=== PATIENT | male | born 1960 | race Caucasian/White ===

== ENCOUNTER 2020-07-08 06:34 | Outpatient (REF) | payer BC, SELFPAY ==
[2020-07-08 08:37] LABS: Cholesterol 217 mg/dL; Glucose Fasting 137 mg/dL (60-99); HDL Cholesterol 35 mg/dL; LDL Cholesterol Calculated 144 mg/dl; Triglycerides 191 mg/dL
[2020-07-08 09:24] LABS: Estimated Average Glucose 143 mg/dL; Hemoglobin A1c % 6.6 %
== END 2020-07-08 06:35 | disposition home or self-care (01) ==
LOC: HO.LAB 06:34
PROVIDERS: PCP Internal Medicine; Visit Provider Internal Medicine
DX: E11.9 Type 2 diabetes mellitus without complications (principal)
CPT/HCPCS: 36415; 80061; 82947; 83036

== ENCOUNTER 2021-01-13 07:12 | Outpatient (REF) | payer BC, SELFPAY ==
[2021-01-13 08:19] LABS: Estimated Average Glucose 148 mg/dL; Hemoglobin A1c % 6.8 %
[2021-01-13 08:21] LABS: Cholesterol 223 mg/dL; HDL Cholesterol 41 mg/dL; LDL Cholesterol Calculated 145 mg/dl; Triglycerides 188 mg/dL
== END 2021-01-13 07:13 | disposition home or self-care (01) ==
LOC: HO.LAB 07:12
PROVIDERS: PCP Internal Medicine; Visit Provider Internal Medicine
DX: E11.9 Type 2 diabetes mellitus without complications (principal)
CPT/HCPCS: 36415; 80061; 83036

== ENCOUNTER 2021-04-21 07:28 | Outpatient (REF) | payer BC, SELFPAY ==
[2021-04-21 08:06] LABS: MANUAL DIFF FLAG NO
[2021-04-21 08:19] LABS: Basophils Percent Auto 0.7 % (0-2); Eosinophils Absolute Auto 0.2 X10*3/uL (0.0-0.4); Eosinophils Percent Auto 3.6 % (0-4); Hemoglobin 13.1 g/dl (14.0-18.0); Imm Gran Abs Auto 0.01 X10*3/uL (0.00-0.03); Imm Gran Pct Auto 0.2 % (0.0-0.4); Lymphocytes Absolute Auto 1.1 X10*3/uL (1.2-4.9); Lymphocytes Percent Auto 27.2 % (20-40); Mean Corpuscular HGB Conc 33.6 g/dl (31.0-36.0); Mean Corpuscular Hemoglobin 32.6 pg (27.0-33.0); Mean Platelet Volume 10.6 fL (9.4-12.4); Monocytes Absolute Auto 0.4 X10*3/uL (0.1-1.2); Monocytes Percent Auto 10.1 % (2-11); Neutrophils Absolute Auto 2.4 X10*3/uL (2.0-8.3); Neutrophils Percent Auto 58.2 % (45-73); Platelet Count 232 X10*3/uL (160-400); Red Blood Count 4.02 X10*6/uL (4.60-5.80); Red Cell Distribution Width 11.9 % (11.0-16.0); White Blood Count 4.2 X10*3/uL (4.8-10.8)
[2021-04-21 08:22] LABS: Estimated Average Glucose 154 mg/dL
[2021-04-21 08:56] LABS: Alanine Aminotransferase 22 U/L (0-40); Albumin Level 4.3 g/dL (3.5-5.0); Alkaline Phosphatase 56 U/L (39-117); Anion Gap 12 (12-20); Aspartate Amino Transferase 23 U/L (5-37); Bilirubin Total 1.1 mg/dL (0.0-1.0); Blood Urea Nitrogen 19 mg/dL (9-16); Calcium 9.6 mg/dL (8.4-10.2); Carbon Dioxide 28 mmol/L (22-29); Chloride 102 mmol/L (96-108); Cholesterol 220 mg/dL; Estimated Glomerular Filt Rate > 60; Glucose Fasting 160 mg/dL (60-99); HDL Cholesterol 39 mg/dL; LDL Cholesterol Calculated 146 mg/dl; Potassium 4.4 mmol/L (3.3-5.1); Sodium 138 mmol/L (135-145); Total Protein 7.4 g/dL (6.5-8.0); Triglycerides 179 mg/dL
== END 2021-04-21 07:29 | disposition home or self-care (01) ==
LOC: HO.LAB 07:28
PROVIDERS: PCP Internal Medicine; Visit Provider Internal Medicine
DX: Z00.00 Encounter for general adult medical examination without abnormal findings (principal); E11.9 Type 2 diabetes mellitus without complications
CPT/HCPCS: 36415; 80053; 80061; 83036; 85025

== ENCOUNTER 2021-07-21 07:14 | Outpatient (REF) | payer BC, SELFPAY ==
[2021-07-21 07:58] LABS: Estimated Average Glucose 148 mg/dL; Hemoglobin A1c % 6.8 %
[2021-07-21 08:10] LABS: Cholesterol 213 mg/dL; Glucose Fasting 145 mg/dL (60-99); HDL Cholesterol 37 mg/dL; LDL Cholesterol Calculated 150 mg/dl; Triglycerides 134 mg/dL
== END 2021-07-21 07:15 | disposition home or self-care (01) ==
LOC: HO.LAB 07:14
PROVIDERS: PCP Internal Medicine; Visit Provider Internal Medicine
DX: E11.65 Type 2 diabetes mellitus with hyperglycemia (principal)
CPT/HCPCS: 36415; 80061; 82947; 83036

== ENCOUNTER 2022-01-12 06:24 | Outpatient (REF) | payer BC, SELFPAY ==
[2022-01-12 07:19] LABS: Estimated Average Glucose 166 mg/dL; Hemoglobin A1c % 7.4 %
[2022-01-12 07:27] LABS: Cholesterol 224 mg/dL; Glucose Fasting 173 mg/dL (60-99); HDL Cholesterol 35 mg/dL; LDL Cholesterol Calculated 156 mg/dl; Triglycerides 168 mg/dL
== END 2022-01-12 06:25 | disposition home or self-care (01) ==
LOC: HO.LAB 06:24
PROVIDERS: PCP Internal Medicine; Visit Provider Internal Medicine
DX: E11.65 Type 2 diabetes mellitus with hyperglycemia (principal)
CPT/HCPCS: 36415; 80061; 82947; 83036

== ENCOUNTER 2022-07-21 06:15 | Outpatient (REF) | payer BC, SELFPAY ==
[2022-07-21 06:39] LABS: MANUAL DIFF FLAG NO
[2022-07-21 07:31] LABS: Eosinophils Absolute Auto 0.2 X10*3/uL (0.0-0.4); Hematocrit 38.9 % (42.0-52.0); Hemoglobin 13.2 g/dl (14.0-18.0); Imm Gran Abs Auto 0.01 X10*3/uL (0.00-0.03); Imm Gran Pct Auto 0.2 % (0.0-0.4); Lymphocytes Absolute Auto 1.1 X10*3/uL (1.2-4.9); Lymphocytes Percent Auto 26.1 % (20-40); Mean Corpuscular HGB Conc 33.9 g/dl (31.0-36.0); Mean Corpuscular Hemoglobin 32.4 pg (27.0-33.0); Mean Corpuscular Volume 95.3 fL (80.0-98.0); Monocytes Absolute Auto 0.5 X10*3/uL (0.1-1.2); Neutrophils Absolute Auto 2.4 x10*3/uL (2.0-8.3); Neutrophils Percent Auto 56.7 % (45-73); Platelet Count 217 X10*3/uL (160-400); Red Blood Count 4.08 X10*6/uL (4.60-5.80); Red Cell Distribution Width 11.9 % (11.0-16.0); White Blood Count 4.2 X10*3/uL (4.8-10.8)
[2022-07-21 07:39] LABS: Estimated Average Glucose 148 mg/dL; Hemoglobin A1c % 6.8 %
[2022-07-21 08:03] LABS: Alanine Aminotransferase 21 U/L (0-40); Albumin Level 4.2 g/dL (3.5-5.0); Alkaline Phosphatase 49 U/L (39-117); Anion Gap 15 (12-20); Aspartate Amino Transferase 22 U/L (5-37); Bilirubin Total 0.7 mg/dL (0.0-1.0); Blood Urea Nitrogen 20 mg/dL (9-16); Carbon Dioxide 25 mmol/L (22-29); Chloride 102 mmol/L (96-108); Cholesterol 231 mg/dL; Estimated Glomerular Filt Rate > 60; Glucose Fasting 168 mg/dL (60-99); HDL Cholesterol 37 mg/dL; LDL Cholesterol Calculated 150 mg/dl; Potassium 4.4 mmol/L (3.3-5.1); Sodium 138 mmol/L (135-145); Total Protein 7.3 g/dL (6.5-8.0); Triglycerides 223 mg/dL
[2022-07-21 08:28] LABS: Thyroid Stimulating Hormone 1.18 uIU/mL (0.32-4.0)
== END 2022-07-21 06:16 | disposition home or self-care (01) ==
LOC: HO.LAB 06:15
PROVIDERS: PCP Internal Medicine; Visit Provider Internal Medicine
DX: Z00.00 Encounter for general adult medical examination without abnormal findings (principal); Z13.9 Encounter for screening, unspecified; Z13.0 Encounter for screening for diseases of the blood and blood-forming organs and certain disorders involving the immune mechanism; E11.9 Type 2 diabetes mellitus without complications
CPT/HCPCS: 36415; 80053; 80061; 83036; 84443; 85025

== ENCOUNTER 2023-01-19 06:26 | Outpatient (REF) | payer BC, SELFPAY ==
[2023-01-19 07:26] LABS: Estimated Average Glucose 151 mg/dL; Hemoglobin A1c % 6.9 %
[2023-01-19 07:44] LABS: Glucose Fasting 219 mg/dL (60-99)
== END 2023-01-19 06:27 | disposition home or self-care (01) ==
LOC: HO.LAB 06:26
PROVIDERS: PCP Internal Medicine; Visit Provider Internal Medicine
DX: E11.9 Type 2 diabetes mellitus without complications (principal)
CPT/HCPCS: 36415; 82947; 83036

== ENCOUNTER 2023-07-26 07:26 | Outpatient (REF) | payer MEDICARE, SELFPAY ==
[2023-07-26 07:36] LABS: MANUAL DIFF FLAG NO
[2023-07-26 08:01] LABS: Basophils Percent Auto 0.7 % (0-2); Eosinophils Absolute Auto 0.3 X10*3/uL (0.0-0.4); Eosinophils Percent Auto 5.2 % (0-4); Hemoglobin 13.1 g/dl (14.0-18.0); Imm Gran Abs Auto 0.01 X10*3/uL (0.00-0.03); Imm Gran Pct Auto 0.2 % (0.0-0.4); Lymphocytes Absolute Auto 1.3 X10*3/uL (1.2-4.9); Lymphocytes Percent Auto 22.3 % (20-40); Mean Corpuscular HGB Conc 33.6 g/dl (31.0-36.0); Mean Corpuscular Hemoglobin 32.3 pg (27.0-33.0); Mean Corpuscular Volume 96.1 fL (80.0-98.0); Mean Platelet Volume 10.1 fL (9.4-12.4); Monocytes Absolute Auto 0.5 X10*3/uL (0.1-1.2); Monocytes Percent Auto 8.6 % (2-11); Neutrophils Absolute Auto 3.7 x10*3/uL (2.0-8.3); Platelet Count 234 X10*3/uL (160-400); Red Blood Count 4.06 X10*6/uL (4.60-5.80); White Blood Count 5.9 X10*3/uL (4.8-10.8)
[2023-07-26 08:07] LABS: Estimated Average Glucose 143 mg/dL; Hemoglobin A1c % 6.6 % (<6.0)
[2023-07-26 08:17] LABS: Alanine Aminotransferase 19 U/L (0-40); Albumin Level 4.2 g/dL (3.5-5.0); Alkaline Phosphatase 57 U/L (39-117); Anion Gap 14 (12-20); Aspartate Amino Transferase 21 U/L (5-37); Bilirubin Total 0.6 mg/dL (0.0-1.0); Blood Urea Nitrogen 20 mg/dL (9-16); Calcium 9.5 mg/dL (8.4-10.2); Carbon Dioxide 27 mmol/L (22-29); Chloride 104 mmol/L (96-108); Cholesterol 214 mg/dL (<200); Estimated Glomerular Filt Rate > 60; Glucose Fasting 155 mg/dL (60-99); HDL Cholesterol 36 mg/dL (>40); LDL Cholesterol Calculated 138 mg/dL (<100); Potassium 4.1 mmol/L (3.3-5.1); Sodium 141 mmol/L (135-145); Total Protein 7.5 g/dL (6.5-8.0); Triglycerides 202 mg/dL (<150)
[2023-07-26 08:57] LABS: Creatinine Urine 144.34 mg/dL; Microalbum/Creatinine Ratio Ur 4.1 ug/mg cr (<30)
== END 2023-07-26 07:27 | disposition home or self-care (01) ==
LOC: HO.LAB 07:26
PROVIDERS: PCP Internal Medicine; Visit Provider Internal Medicine
DX: D64.9 Anemia, unspecified (principal); N28.9 Disorder of kidney and ureter, unspecified; E11.65 Type 2 diabetes mellitus with hyperglycemia; E78.5 Hyperlipidemia, unspecified; E11.69 Type 2 diabetes mellitus with other specified complication; E66.01 Morbid (severe) obesity due to excess calories
CPT/HCPCS: 36415; 80053; 80061; 82043; 82570; 83036; 85025

== ENCOUNTER 2023-07-28 09:11 | Outpatient (AMB) | payer MEDICARE, SELFPAY ==
[2023-07-28 09:18] VITALS: BP 124/72; PULSE 60; O2SAT 99; BMI 27.8
--- NOTE | 2023-07-28 09:18 | MHC.PC.OV ---
Vital Signs 07/28/23 09:18 Height 5 ft 6 in Weight 172 lb BMI 27.8 BP 124/72 Blood Pressure Location Lt brachial Position Sitting Pulse 60 Pulse Source Pulse Oximeter Pulse Oximetry (%) 99 Oxygen Delivery Method Room Air Intake Visit Reasons: 6mth f/u Allergies No Known Allergies [No Known Allergies*] Allergy (Verified 07/28/23 09:18) Medication List - Last Reconciled 07/28/23 by Abdias Mcbride MD benzonatate 100 mg PO BID PRN blood sugar diagnostic Once a day lisinopril 10 mg PO DAILY metformin 500 mg PO TID methylcellulose (laxative) (Citrucel) 1,000 mg PO DAILY Tobacco use date assessed: 07/28/23 Fall risk assessment: No Falls in past year Last assessed Fall Risk: 07/28/23 Dental Screening Dental Screen Date: 07/28/23 Did you have a dental visit in the last 12 months?: Yes Did you have a dental problem in the last 6 months where you did not have access to dental care?: No Was dental information given to patient?: Patient has dentist HPI 6mth f/u HPI Details HTN hyperlipidemia and cough PFSH Medical History Hypertension Diabetes mellitus with coincident hypertension Surgical History History of rectal polypectomy Family History Father Prostate cancer Mother Stroke Social History Housing: House Alcohol intake: current Alcohol intake frequency: a few times a week Patient Tobacco Use Status: Never used Tobacco e-Cigarette/Vaping Use: Never Used Second Hand Smoke Exposure: No service: No Current occupational status: retired Cognitive needs: No Hearing needs: No Vision needs: Yes Questionnaire PHQ-9 Over the last 2 weeks, how often have you been bothered by any of the following problems? 1. Little interest or pleasure in doing things: not at all 2. Feeling down, depressed, or hopeless: not at all 3. Trouble falling or staying asleep, or sleeping too much: not at all 4. Feeling tired or having little energy: not at all 5. Poor appetite or overeating: not at all 6. Feeling bad about yourself - or that you are a failure or have let yourself or your family down: not at all 7. Trouble concentrating on things, such as reading the newspaper or watching television: not at all 8. Moving or speaking so slowly that other people could have noticed. Or the opposite - being so fidgety or restless that you have been moving around a lot more than usual: not at all 9. Thoughts that you would be better off or of hurting yourself in some way: not at all Total score: 0 Depression Screening Interpretation: Negative Depression Screening Done: Yes 52289 - PHQ-9 Billing: Yes Source: Developed by Drs. Errol Graf, Bernice English, Richard Gonzalez and colleagues, with an educational brisa from [employer]. Thrive Questionnaire Date Thrive assessed: 01/26/23 AUDIT C Alcohol Use Questionnaire (AUDIT-C) 1. How often do you have a drink containing alcohol?: 2-3 times a week 2. How many drinks containing alcohol do you have on a typical day when you are drinking?: 3 or 4 3. How often do you have six or more drinks on one occasion?: Never Total Score: 4 Score Reviewed/Action Taken: Yes TUNDE-7 AMB Questionnaire TUNDE-7 Date TUNDE - 7 assessed: 01/26/23 Source: Developed by Drs. Errol Graf, Bernice English, Richard Gonzalez and colleagues, with an educational brisa from [employer]. Review of Systems Const Denies chills, Denies headache(s) and Denies weight loss ENT Denies headache(s) Card Denies chest pain, Denies syncope, Denies irregular heart rhythm and Denies dyspnea Resp Denies chest congestion and Denies dyspnea GI Denies abdominal pain, Denies change in stool character, Denies nausea and Denies vomiting Musc Denies deformity and Denies joint swelling Neuro Denies syncope and Denies headache(s) Physical exam (Primary Care) Vital Signs: Last Vital Signs Pulse 60 07/28/23 09:18 BP 124/72 07/28/23 09:18 Pulse Ox 99 07/28/23 09:18 Oxygen Delivery Method Room Air 07/28/23 09:18 BMI result Body Mass Index 27.8 Tobacco/Smoking Status: Tobacco use Status Tobacco use date assessed 07/28/23 07/28/23 09:19 Patient Tobacco Use Status Never used Tobacco 07/28/23 09:19 e-Cigarette/Vaping Use Never Used 07/28/23 09:19 PHQ-9: PHQ-9 Score PHQ-9: Total score 0 07/28/23 09:19 Depression Screening Interpretation: Negative Thrive Assessment: Date of Thrive Assessment Date Thrive assessed 01/26/23 07/28/23 09:19 Const General: cooperative, comfortable, no acute distress and alert Neck Neck: Yes no lymphadenopathy Thyroid: Thyroid normal Resp Effort & Inspection: normal respiratory effort Auscultation: clear to auscultation bilaterally Percussion: percussion normal Cardio Jugular venous distension: no JVD Palpation: normal PMI Rate: regular rate Rhythm: regular rhythm Heart sounds: S1 normal heart sound present and S2 normal heart sound present Extrem General: Yes no clubbing, cyanosis or edema Assessment and Plan Assessment & Plan (1) Diabetes mellitus with coincident hypertension: Code(s): E11.9 - Type 2 diabetes mellitus without complications; I10 - Essential (primary) hypertension Plan: stable; same rx (2) Hypertension: Code(s): I10 - Essential (primary) hypertension Plan: stable; same rx (3) Cough: Code(s): R05.9 - Cough, unspecified Plan: rx sent Orders: Orders Lipid Panel Today E78.5 - Hyperlipidemia, unspecified Complete Blood Count Auto Diff Today D64.9 - Anemia, unspecified Comprehensive [place]. Panel Fast Today N28.9 - Disorder of kidney and ureter, unspecified Hemoglobin A1c Today R73.9 - Hyperglycemia, unspecified Medications: New azithromycin take 500 mg today (day 1), then 250 mg for 4 days (days 2-5) PO 6 tabs 0RF Coding Level of Care Code Est Pt Level 4 (21891) Diagnoses Diabetes mellitus with coincident hypertension E11.9; I10 Hypertension I10 Cough R05.9
== END 2023-07-28 09:30 | disposition home or self-care (01) ==
PROVIDERS: Visit Provider Internal Medicine
DX: E11.9 Type 2 diabetes mellitus without complications (principal); I10 Essential (primary) hypertension; R05.9 Cough, unspecified
CPT/HCPCS: 99214

== ENCOUNTER 2023-10-31 12:39 | Outpatient (REF) | payer MEDICARE, SELFPAY | END 2023-10-31 12:40 | disposition home or self-care (01) | LOC: HO.SH 12:39 | PROVIDERS: Visit Provider Internal Medicine | DX: Z01.118 Encounter for examination of ears and hearing with other abnormal findings (principal); H90.3 Sensorineural hearing loss, bilateral | CPT/HCPCS: 92557 ==

== ENCOUNTER 2023-11-08 14:17 | Outpatient (REF) | payer SELFPAY ==
--- NOTE | 2023-11-09 10:50 | MHC.AU.HA1 ---
Hearing Aid Evaluation Date of Visit: 11/08/23 Historical Information: Description of Hearing: Within normal sloping to mild sensorineural hearing loss at 1 kHz rising to normal hearing at 2 kHz steeply sloping to moderately-severe sensorineural hearing loss, bilaterally. Summary: Boby was accompanied by his , who is strongly encouraging him to trial hearing aids. Boby, himself, is reluctant towards amplification primarily due to vanity concerns and how others will perceive him with hearing aids. However, Boby has noticed hearing difficulties including his ability to understand speech especially in adverse listening environments. His also mentioned that he does not realize how much he is missing. Boby agreed to pursue amplification knowing there is a trial period and he has the option to return them. Counseled extensively on acclimatization period and importance of consistent use. Boby is ready to hear better; however, he is very self-conscious about wearing the devices. Although Boby is retired, he still has an active social life. He frequents sporting events, bars, and restaurants. He is often in crowds, with multiple people at family gatherings or socializing with friends. He is an avid golfer and often times has difficulty hearing is friends on the golf course. Discussed pros and cons of different style hearing aids (CIC/IIC for vanity concerns vs. RITE). Boby ultimately opted to trial RITE hearing aids for options of rechargeability and bluetooth capabilities with his iPhone. Hearing Aid Prescription: Based on the individual?s shared listening needs, communication environments, dexterity, desire for connectivity, and personal preferences, the following prescription for amplification has been made: Right ear: Make, Model, Color: Oticon Real 1 miniRITE-R Color: Silver Contreras Battery Size: Rechargeable Nuisance Wildlife Specialist/Slim Tube: 2/85 Type of Earmold/Dome/CShell/SlimTip: 8mm double martin dome Left ear: Left ear prescription to be same as Right Hearing Aid above: Make, Model, Color: Oticon Real 1 miniRITE-R Color: Silver Contreras Battery Size: Rechargeable Nuisance Wildlife Specialist/Slim Tube: 2/85 Type of Earmold/Dome/CShell/SlimTip: 8mm double martin dome Accessories/Assistive Technology: Desktop Supervisor Calibration Smart Supervisor Calibration Plan of Care: Patient wishes to purchase hearing aids as prescribed Action Taken/Action Needed: Hearing Instrument Fitting to be scheduled when materials arrive Primary Diagnosis: H90.3 Bilateral Sensorineural Hearing Loss Signature: Provider: Kang Mckeon, [facility]
== END 2023-11-08 14:18 | disposition home or self-care (01) ==
LOC: HO.HAP 14:17
PROVIDERS: PCP Internal Medicine; Visit Provider Internal Medicine
DX: Z46.1 Encounter for fitting and adjustment of hearing aid (principal); H90.3 Sensorineural hearing loss, bilateral
CPT/HCPCS: 92590; 92591

== ENCOUNTER 2023-11-22 06:17 | Outpatient (REF) | payer MEDICARE, SELFPAY ==
[2023-11-22 06:39] LABS: MANUAL DIFF FLAG NO
[2023-11-22 07:26] LABS: Basophils Percent Auto 0.8 % (0-2); Eosinophils Absolute Auto 0.2 X10*3/uL (0.0-0.4); Eosinophils Percent Auto 4.4 % (0-4); Hematocrit 39.1 % (42.0-52.0); Hemoglobin 13.3 g/dl (14.0-18.0); Lymphocytes Absolute Auto 1.6 X10*3/uL (1.2-4.9); Mean Corpuscular Hemoglobin 32.7 pg (27.0-33.0); Mean Corpuscular Volume 96.1 fL (80.0-98.0); Mean Platelet Volume 10.2 fL (9.4-12.4); Monocytes Absolute Auto 0.5 X10*3/uL (0.1-1.2); Monocytes Percent Auto 9.5 % (2-11); Neutrophils Absolute Auto 2.9 x10*3/uL (2.0-8.3); Neutrophils Percent Auto 55.3 % (45-73); Platelet Count 229 X10*3/uL (160-400); Red Blood Count 4.07 X10*6/uL (4.60-5.80); Red Cell Distribution Width 11.9 % (11.0-16.0); White Blood Count 5.2 X10*3/uL (4.8-10.8)
[2023-11-22 07:40] LABS: Estimated Average Glucose 148 mg/dL; Hemoglobin A1c % 6.8 % (<6.0)
[2023-11-22 07:43] LABS: Alanine Aminotransferase 23 U/L (0-40); Albumin Level 4.1 g/dL (3.5-5.0); Alkaline Phosphatase 47 U/L (39-117); Anion Gap 12 (12-20); Aspartate Amino Transferase 23 U/L (5-37); Bilirubin Total 0.6 mg/dL (0.0-1.0); Blood Urea Nitrogen 25 mg/dL (9-16); Calcium 9.4 mg/dL (8.4-10.2); Carbon Dioxide 28 mmol/L (22-29); Chloride 104 mmol/L (96-108); Cholesterol 218 mg/dL (<200); Estimated Glomerular Filt Rate > 60; Glucose Fasting 144 mg/dL (60-99); HDL Cholesterol 39 mg/dL (>40); LDL Cholesterol Calculated 139 mg/dL (<100); Sodium 140 mmol/L (135-145); Total Protein 7.2 g/dL (6.5-8.0); Triglycerides 200 mg/dL (<150)
== END 2023-11-22 06:18 | disposition home or self-care (01) ==
LOC: HO.LAB 06:17
PROVIDERS: PCP Internal Medicine; Visit Provider Internal Medicine
DX: D64.9 Anemia, unspecified (principal); R73.9 Hyperglycemia, unspecified; N28.9 Disorder of kidney and ureter, unspecified; E78.5 Hyperlipidemia, unspecified
CPT/HCPCS: 36415; 80053; 80061; 83036; 85025

== ENCOUNTER 2023-11-28 08:21 | Outpatient (AMB) | payer MEDICARE, SELFPAY ==
[2023-11-28 08:32] VITALS: BP 120/64; PULSE 60; O2SAT 99; BMI 29.2
--- NOTE | 2023-11-28 08:32 | MHC.PC.OV ---
Vital Signs 11/28/23 08:32 Height 5 ft 6 in Weight 181 lb BMI 29.2 BP 120/64 Blood Pressure Location Lt brachial Position Sitting Pulse 60 Pulse Source Pulse Oximeter Pulse Oximetry (%) 99 Oxygen Delivery Method Room Air Intake Visit Reasons: [facility] f/u Dental Office Manager Required: No Plumbing Foreman: Not Required per policy Accompanied by: Self / Same As Patient Allergies No Known Allergies [No Known Allergies*] Allergy (Verified 11/28/23 08:33) Medication List - Last Reconciled 11/28/23 by Abdias Mcbride MD blood sugar diagnostic Once a day lisinopril 10 mg PO DAILY metformin 500 mg PO TID methylcellulose (laxative) (Citrucel) 1,000 mg PO DAILY Tobacco use date assessed: 11/28/23 Fall risk assessment: No Falls in past year Last assessed Fall Risk: 11/28/23 Dental Screening Dental Screen Date: 11/28/23 Did you have a dental visit in the last 12 months?: Yes Did you have a dental problem in the last 6 months where you did not have access to dental care?: No Was dental information given to patient?: Patient has dentist [facility] Details DM and HTN on rx; doing well; compliant [facility] Medical History Hypertension Diabetes mellitus with coincident hypertension Surgical History History of rectal polypectomy Family History Father Prostate cancer Mother Stroke Social History Housing: House Alcohol intake: current Alcohol intake frequency: a few times a week Patient Tobacco Use Status: Never used Tobacco e-Cigarette/Vaping Use: Never Used Second Hand Smoke Exposure: No service: No Current occupational status: retired Cognitive needs: No Hearing needs: No Vision needs: Yes Questionnaire PHQ-9 Over the last 2 weeks, how often have you been bothered by any of the following problems? 1. Little interest or pleasure in doing things: not at all 2. Feeling down, depressed, or hopeless: not at all 3. Trouble falling or staying asleep, or sleeping too much: not at all 4. Feeling tired or having little energy: not at all 5. Poor appetite or overeating: not at all 6. Feeling bad about yourself - or that you are a failure or have let yourself or your family down: not at all 7. Trouble concentrating on things, such as reading the newspaper or watching television: not at all 8. Moving or speaking so slowly that other people could have noticed. Or the opposite - being so fidgety or restless that you have been moving around a lot more than usual: not at all 9. Thoughts that you would be better off or of hurting yourself in some way: not at all Total score: 0 Depression Screening Interpretation: Negative Depression Screening Done: Yes 60520 - PHQ-9 Billing: Yes Source: Developed by Drs. Errol Graf, Bernice English, Richard Gonzalez and colleagues, with an educational brisa from [employer]. Thrive Questionnaire Date Thrive assessed: 11/28/23 I am a: Patient What is your living situation today?: I have a steady place to live Within the past 12 months, did the food you bought not last and you didn't have the money to get more?: Never true Within the past 12 months, did you worry whether your food would run out before you got money to buy more?: Never true Do you have trouble paying for medicines?: No Do you have trouble getting transportation to medical appointments?: No Do you have trouble paying your heating and electricity bill?: No Do you have trouble taking care of your child, family member or friend?: No Do you have trouble with day-to-day activities such as bathing, preparing meals, shopping, managing finances, etc.?: No Are you currently unemployed and looking for a job?: No Are you interested in more education?: No Please select the resources that you would like help with: None THRIVE Score: 0 AUDIT C Alcohol Use Questionnaire (AUDIT-C) 1. How often do you have a drink containing alcohol?: 2-3 times a week 2. How many drinks containing alcohol do you have on a typical day when you are drinking?: 3 or 4 3. How often do you have six or more drinks on one occasion?: Never Total Score: 4 Score Reviewed/Action Taken: Yes TUNDE-7 AMB Questionnaire TUNDE-7 Date TUNDE - 7 assessed: 11/28/23 Feeling nervous, anxious, or on edge: 0 = Not at all Not being able to stop or control worryin = Not at all Worrying too much about different things: 0 = Not at all Trouble relaxin = Not at all Being so restless that it is hard to sit still: 0 = Not at all Becoming easily annoyed or irritable: 0 = Not at all Feeling afraid as if something awful might happen: 0 = Not at all Total TUNDE-7 score (0-4 normal; 5-9 mild; 10-14 moderate; 15-21 severe): 0 Source: Developed by Drs. Errol Graf, Bernice English, Richard Gonzalez and colleagues, with an educational brisa from [employer]. TUNDE-7 Assessment Billing TUNDE-7 Assessment Tool: TUNDE-7 Assessment 61131 Review of Systems Const Denies chills, Denies headache(s) and Denies weight loss ENT Denies headache(s) Card Denies chest pain, Denies syncope, Denies irregular heart rhythm and Denies dyspnea Resp Denies chest congestion, Denies cough and Denies dyspnea GI Denies abdominal pain, Denies change in stool character, Denies nausea and Denies vomiting Musc Denies deformity and Denies joint swelling Neuro Denies syncope and Denies headache(s) Physical exam (Primary Care) Vital Signs: Last Vital Signs Pulse 60 11/28/23 08:32 BP 120/64 11/28/23 08:32 Pulse Ox 99 11/28/23 08:32 Oxygen Delivery Method Room Air 11/28/23 08:32 BMI result Body Mass Index 29.2 Tobacco/Smoking Status: Tobacco use Status Tobacco use date assessed 11/28/23 11/28/23 08:38 Patient Tobacco Use Status Never used Tobacco 11/28/23 08:38 e-Cigarette/Vaping Use Never Used 11/28/23 08:38 PHQ-9: PHQ-9 Score PHQ-9: Total score 0 11/28/23 08:38 Depression Screening Interpretation: Negative Thrive Assessment: Date of Thrive Assessment Date Thrive assessed 11/28/23 11/28/23 08:38 Const General: cooperative, comfortable, no acute distress and alert Neck Neck: Yes no lymphadenopathy Thyroid: Thyroid normal Resp Effort & Inspection: normal respiratory effort Auscultation: clear to auscultation bilaterally Percussion: percussion normal Cardio Jugular venous distension: no JVD Palpation: normal PMI Rate: regular rate Rhythm: regular rhythm Heart sounds: S1 normal heart sound present and S2 normal heart sound present GI Inspection: Yes normal to inspection Palpation (GI): No hepatosplenomegaly present Skin General skin exam: no rashes or lesions noted Extrem General: Yes no clubbing, cyanosis or edema Assessment and Plan Assessment & Plan (1) Hypertension: Code(s): I10 - Essential (primary) hypertension Plan: stable; same rx (2) Diabetes mellitus with coincident hypertension: Code(s): E11.9 - Type 2 diabetes mellitus without complications; I10 - Essential (primary) hypertension Plan: stable; same rx Orders: Orders Thyroid Stimulating Hormone Today E03.9 - Hypothyroidism, unspecified Complete Blood Count Auto Diff Today D64.9 - Anemia, unspecified Comprehensive [place]. Panel Fast Today N28.9 - Disorder of kidney and ureter, unspecified Microalbumin, Random (w Creat) Today E11.69 - Type 2 diabetes mellitus with other specified complication, E66.01 - Morbid (severe) obesity due to excess calories Lipid Panel Today E78.5 - Hyperlipidemia, unspecified Hemoglobin A1c Today R73.9 - Hyperglycemia, unspecified Coding Level of Care Code Est Pt Level 3 (03457) Diagnoses Hypertension I10 Diabetes mellitus with coincident hypertension E11.9; I10 Additional Codes TUNDE-7 Assessment Billing - TUNDE-7 Assessment Tool: TUNDE-7 Assessment 90359 ([id number])
== END 2023-11-28 08:56 | disposition home or self-care (01) ==
PROVIDERS: PCP Internal Medicine; Visit Provider Internal Medicine
DX: I10 Essential (primary) hypertension (principal); E11.65 Type 2 diabetes mellitus with hyperglycemia
CPT/HCPCS: 99213

== ENCOUNTER 2023-11-28 10:51 | Outpatient (REF) | payer SELFPAY | END 2023-11-28 10:52 | disposition home or self-care (01) | LOC: HO.HAP 10:51 | PROVIDERS: Visit Provider Internal Medicine | DX: Z46.1 Encounter for fitting and adjustment of hearing aid (principal); H90.3 Sensorineural hearing loss, bilateral | CPT/HCPCS: V5262; V5299 ==

== ENCOUNTER 2023-12-16 13:20 | Outpatient (REF) | payer SELFPAY | END 2023-12-16 13:21 | disposition home or self-care (01) | LOC: HO.HAP 13:20 | PROVIDERS: Visit Provider Internal Medicine | DX: Z13.89 Encounter for screening for other disorder (principal) ==

== ENCOUNTER 2024-01-18 08:22 | Outpatient (REF) | payer SELFPAY ==
--- NOTE | 2024-01-18 09:33 | MHC.AU.HA3 ---
Hearing Instrument Follow-Up- Binaural Date of Visit: 01/18/24 Right Ear: Make, Model, Color, Serial Number: Oticon Real 1 miniRITE-R SN: [id number] Color: Silver Contreras Collar Closer Lockstitch Repair Warranty: 12/09/2026 Collar Closer Lockstitch Loss and Damage Warranty: 12/09/2026 [facility] Service Plan: OPTED OUT Battery Size: Rechargeable Administration Clerk/Slim Tube: 2/85 Earmold/Dome/CShell/SlimTip:6mm double martin dome (no retention tail) Type of Wax Guard: MiniFit Dispensed By: [facility] Date of Fittin11/28/2023 Left Ear: Make, Model, Color, Serial Number: Oticon Real 1 miniRITE-R SN: [id number] Color: Silver Contreras Collar Closer Lockstitch Repair Warranty: 12/09/2026 Collar Closer Lockstitch Loss and Damage Warranty: 12/09/2026 [facility] Service Plan: OPTED OUT Battery Size: Rechargeable Administration Clerk/Slim Tube: 2/85 Earmold/Dome/CShell/SlimTip: 6mm double martin dome (no retention tail) Type of Wax Guard: miniFit Dispensed By: [facility] Date of Fittin11/28/2023 Follow-Up Summary: Boby reports that his right aid stopped working Tuesday, was still not working Tuesday AM despite charging and showing itself as on in the rissa, but has since started working again. He reports it continues to work now. He reports changing the dome at some point but not the wax guard. Checked both aids, found some wax build up on the right dome as well as both receivers. Cleaned aids, replaced domes and wax guards. Listening check positive. Checked for firmware update, non needed at this time. Otoscopy reveals non occluding cerumen Au. Recommendations: Recommendations: Hearing instrument follow-up or maintenance as needed. Diagnosis Code(s): Primary Diagnosis: H90.3 Bilateral Sensorineural Hearing Loss Signature: Provider: Kang Quintana, [facility]
== END 2024-01-18 08:23 | disposition home or self-care (01) ==
LOC: HO.HAP 08:22
PROVIDERS: Visit Provider Internal Medicine
DX: Z46.1 Encounter for fitting and adjustment of hearing aid (principal); H90.3 Sensorineural hearing loss, bilateral
CPT/HCPCS: 92593

== ENCOUNTER 2024-05-22 07:05 | Outpatient (REF) | payer MEDICARE, SELFPAY ==
[2024-05-22 07:22] LABS: MANUAL DIFF FLAG NO
[2024-05-22 07:57] LABS: Basophils Percent Auto 0.9 % (0-2); Eosinophils Absolute Auto 0.2 X10*3/uL (0.0-0.4); Eosinophils Percent Auto 3.7 % (0-4); Hematocrit 38.9 % (42.0-52.0); Hemoglobin 13.2 g/dl (14.0-18.0); Imm Gran Abs Auto 0.01 X10*3/uL (0.00-0.03); Imm Gran Pct Auto 0.2 % (0.0-0.4); Lymphocytes Absolute Auto 1.4 X10*3/uL (1.2-4.9); Lymphocytes Percent Auto 31.8 % (20-40); Mean Corpuscular HGB Conc 33.9 g/dl (31.0-36.0); Mean Corpuscular Hemoglobin 32.8 pg (27.0-33.0); Mean Corpuscular Volume 96.8 fL (80.0-98.0); Mean Platelet Volume 9.9 fL (9.4-12.4); Monocytes Absolute Auto 0.4 X10*3/uL (0.1-1.2); Monocytes Percent Auto 9.3 % (2-11); Neutrophils Absolute Auto 2.3 x10*3/uL (2.0-8.3); Neutrophils Percent Auto 54.1 % (45-73); Platelet Count 230 X10*3/uL (160-400); Red Blood Count 4.02 X10*6/uL (4.60-5.80); Red Cell Distribution Width 12.2 % (11.0-16.0); White Blood Count 4.3 X10*3/uL (4.8-10.8)
[2024-05-22 08:13] LABS: Estimated Average Glucose 157 mg/dL; Hemoglobin A1c % 7.1 % (<6.0)
[2024-05-22 08:19] LABS: Alanine Aminotransferase 22 U/L (0-40); Albumin Level 4.1 g/dL (3.5-5.0); Alkaline Phosphatase 50 U/L (39-117); Anion Gap 13 (12-20); Aspartate Amino Transferase 21 U/L (5-37); Bilirubin Total 0.6 mg/dL (0.0-1.0); Blood Urea Nitrogen 26 mg/dL (9-16); Calcium 9.5 mg/dL (8.4-10.2); Carbon Dioxide 26 mmol/L (22-29); Chloride 104 mmol/L (96-108); Cholesterol 218 mg/dL (<200); Estimated Glomerular Filt Rate > 60; Glucose Fasting 150 mg/dL (60-99); HDL Cholesterol 40 mg/dL (>40); LDL Cholesterol Calculated 130 mg/dL (<100); Potassium 4.1 mmol/L (3.3-5.1); Sodium 139 mmol/L (135-145); Total Protein 7.2 g/dL (6.5-8.0); Triglycerides 240 mg/dL (<150)
[2024-05-22 08:36] LABS: Thyroid Stimulating Hormone 0.84 uIU/mL (0.32-4.0)
[2024-05-22 09:11] LABS: Creatinine Urine 144.98 mg/dL; Microalbum/Creatinine Ratio Ur 6.8 ug/mg cr (<30)
== END 2024-05-22 07:06 | disposition home or self-care (01) ==
LOC: HO.LAB 07:05
PROVIDERS: PCP Internal Medicine; Visit Provider Internal Medicine
DX: E03.9 Hypothyroidism, unspecified (principal); D64.9 Anemia, unspecified; N28.9 Disorder of kidney and ureter, unspecified; E78.5 Hyperlipidemia, unspecified; E66.01 Morbid (severe) obesity due to excess calories; E11.69 Type 2 diabetes mellitus with other specified complication; E11.65 Type 2 diabetes mellitus with hyperglycemia
CPT/HCPCS: 36415; 80053; 80061; 82043; 82570; 83036; 84443; 85025

== ENCOUNTER 2024-05-28 08:28 | Outpatient (AMB) | payer MEDICARE, SELFPAY ==
[2024-05-28 08:40] VITALS: BP 124/78; PULSE 65; O2SAT 99; BMI 28.1
--- NOTE | 2024-05-28 08:40 | A.OFFPC_ITS ---
Vital Signs 05/28/24 08:40 Height 5 ft 6 in Weight 174 lb BMI 28.1 BP 124/78 Blood Pressure Location Lt brachial Position Sitting Pulse 65 Pulse Source Pulse Oximeter Pulse Oximetry (%) 99 Oxygen Delivery Method Room Air Intake Visit Reasons: 6mth f/u Allergies No Known Allergies [No Known Allergies*] Allergy (Verified 05/28/24 08:42) Medication List - Last Reconciled 05/28/24 by Abdias Mcbride MD blood sugar diagnostic Once a day lisinopril 10 mg PO DAILY metformin 500 mg PO TID methylcellulose (laxative) (Citrucel) 1,000 mg PO DAILY Tobacco use date assessed: 11/28/23 Fall risk assessment: No Falls in past year Last assessed Fall Risk: 05/28/24 Dental Screening Dental Screen Date: 11/28/23 HPI 6mth f/u HPI Details diabetes on rx; A1C 7.1; needs to improve diet; left shoulder hurts while golfing [facility] Medical History Hypertension Diabetes mellitus with coincident hypertension Surgical History History of rectal polypectomy Family History Father Prostate cancer Mother Stroke Social History Housing: House Alcohol intake: current Alcohol intake frequency: a few times a week Patient Tobacco Use Status: Never used Tobacco Tobacco use type: Cigarette e-Cigarette/Vaping Use: Never Used Second Hand Smoke Exposure: No service: No Current occupational status: retired Cognitive needs: No Hearing needs: No Vision needs: Yes Questionnaire PHQ-9 Over the last 2 weeks, how often have you been bothered by any of the following problems? 1. Little interest or pleasure in doing things: not at all 2. Feeling down, depressed, or hopeless: not at all 3. Trouble falling or staying asleep, or sleeping too much: not at all 4. Feeling tired or having little energy: not at all 5. Poor appetite or overeating: not at all 6. Feeling bad about yourself - or that you are a failure or have let yourself or your family down: not at all 7. Trouble concentrating on things, such as reading the newspaper or watching television: not at all 8. Moving or speaking so slowly that other people could have noticed. Or the opposite - being so fidgety or restless that you have been moving around a lot more than usual: not at all 9. Thoughts that you would be better off or of hurting yourself in some way: not at all Total score: 0 Depression Screening Interpretation: Negative Depression Screening Done: Yes 28718 - PHQ-9 Billing: Yes Source: Developed by Drs. Errol Graf, Bernice English, Richard Gonzalez and colleagues, with an educational brisa from [employer]. Thrive Questionnaire Date Thrive assessed: 11/28/23 AUDIT C Alcohol Use Questionnaire (AUDIT-C) 1. How often do you have a drink containing alcohol?: 2-3 times a week 2. How many drinks containing alcohol do you have on a typical day when you are drinking?: 3 or 4 3. How often do you have six or more drinks on one occasion?: Never Total Score: 4 Score Reviewed/Action Taken: Yes TUNDE-7 AMB Questionnaire TUNDE-7 Date TUNDE - 7 assessed: 11/28/23 Source: Developed by Drs. Errol Graf, Bernice English, Richard Gonzalez and colleagues, with an educational brisa from [employer]. Review of Systems Const Denies chills, Denies headache(s) and Denies weight loss ENT Denies headache(s) Card Denies chest pain, Denies syncope, Denies irregular heart rhythm and Denies dyspnea Resp Denies chest congestion, Denies cough and Denies dyspnea GI Denies abdominal pain, Denies change in stool character, Denies nausea and Denies vomiting Musc Denies deformity and Denies joint swelling Neuro Denies syncope and Denies headache(s) Physical exam (Primary Care) Vital Signs: Last Vital Signs Pulse 65 05/28/24 08:40 BP 124/78 05/28/24 08:40 Pulse Ox 99 05/28/24 08:40 Oxygen Delivery Method Room Air 05/28/24 08:40 BMI result Body Mass Index 28.1 Tobacco/Smoking Status: Tobacco use Status Tobacco use date assessed 11/28/23 05/28/24 08:44 Patient Tobacco Use Status Never used Tobacco 05/28/24 08:44 Tobacco use type Cigarette 05/28/24 08:44 e-Cigarette/Vaping Use Never Used 05/28/24 08:44 PHQ-9: PHQ-9 Score PHQ-9: Total score 0 05/28/24 08:44 Depression Screening Interpretation: Negative Thrive Assessment: Date of Thrive Assessment Date Thrive assessed 11/28/23 05/28/24 08:44 Const General: cooperative, comfortable, no acute distress and alert Neck Neck: Yes no lymphadenopathy Thyroid: Thyroid normal Resp Effort & Inspection: normal respiratory effort Auscultation: clear to auscultation bilaterally Percussion: percussion normal Cardio Jugular venous distension: no JVD Palpation: normal PMI Rate: regular rate Rhythm: regular rhythm Heart sounds: S1 normal heart sound present and S2 normal heart sound present GI Inspection: Yes normal to inspection Palpation (GI): No hepatosplenomegaly present Skin General skin exam: no rashes or lesions noted Extrem General: Yes no clubbing, cyanosis or edema Assessment and Plan Assessment & Plan (1) Diabetes mellitus with coincident hypertension: Code(s): E11.9 - Type 2 diabetes mellitus without complications; I10 - Essential (primary) hypertension Plan: same rx; improve diet Orders: Orders PT Evaluation and Treatment Today M77.8 - Other enthesopathies, not elsewhere classified Hemoglobin A1c Today R73.9 - Hyperglycemia, unspecified XR shoulder LT min 2V Today M25.519 - Pain in unspecified shoulder Comprehensive [place]. Panel Fast Today Z13.9 - Encounter for screening, unspecified Complete Blood Count Auto Diff Today Z13.0 - Encounter for screening for diseases of the blood and blood-forming organs and certain disorders involving the immune mechanism Lipid Panel Today Z13.220 - Encounter for screening for lipoid disorders Coding Level of Care Code Est Pt Level 3 (87186) Diagnoses Diabetes mellitus with coincident hypertension E11.9; I10
== END 2024-05-28 08:59 | disposition home or self-care (01) ==
PROVIDERS: PCP Internal Medicine; Visit Provider Internal Medicine
DX: E11.9 Type 2 diabetes mellitus without complications (principal); I10 Essential (primary) hypertension
CPT/HCPCS: 99213

== ENCOUNTER 2024-05-28 11:30 | Outpatient (REF) | payer MEDICARE, SELFPAY ==
--- NOTE | ~2024-05-28 | XR_ITS ---
EXAMINATION: XR SHOULDER, LEFT CLINICAL INFORMATION: Left shoulder pain. COMPARISON: None available. TECHNIQUE: AP external rotation, Grashey, scapular Y, and axillary views of the left shoulder. FINDINGS: No acute fracture or dislocation. Tiny acromioclavicular marginal osteophytes and tiny lateral subacromial spurs. No glenohumeral joint space narrowing or marginal osteophytes. No osseous erosion. XR/XR shoulder LT min 2V IMPRESSION: Mild acromioclavicular osteoarthritis with tiny lateral subacromial spurs. Electronically signed by: Johnnie Villar MD 06/01/2024 10:03 AM EDT
== END 2024-05-28 11:31 | disposition home or self-care (01) ==
LOC: HO.XRAY 11:30
PROVIDERS: PCP Internal Medicine; Visit Provider Internal Medicine
DX: M25.512 Pain in left shoulder (principal)
CPT/HCPCS: 73030

== ENCOUNTER 2024-07-23 08:00 | Outpatient (RCR) | payer MEDICARE, SELFPAY ==
--- NOTE | 2024-06-26 12:29 | MHC.PT.EP ---
[facility] [place] Office [place] Office [place] Office [address] [place] Hooker [address] [phone] F: [phone] F: [phone] F: [phone] F: [phone] Physical Therapy Plan of Care Date of Evaluation: 06/26/24 Date of Surgery: Diagnosis: LEFT SHOULDER TENDONITIS Assessment: 64 YO MALE REF TO PT FOR Lt SHOULDER PAIN x APPROX 6 WEEKS-> HE DENIES TRAUMA. THE Pt IS Rt HAND DOMINANT AND HE ENJOYS PLAYING GOLF. OBJECTIVE FINDINGS: DECR POSTURAL AWARENESS W LIMITED CERV ROTAT AND SB; STRENGTH DEFICITS IN POSTERIOR RC/ SCAP MM, AND TTP Lt UT/ DELTOID MM. FUNCTIONALLY, THE Pt HAS BEEN FAVORING HIS Lt SH W ADLs- HE HAS DIFFIC SLEEPING; HE NOTES HE BEGAN ICING AND TAKING TYLENOL W RELIEF. HIS SPECIAL TESTS WERE (-) FOR SH IMPINGEMENT/ INSTABILITY AT THIS TIME. WE DISCUSSED AND THE Pt AGREES W PT 1 x WK TO DEV A HEP TO ADDRESS POST RC/ SCAP /CERV MOBILITY TO REDUCE THE RISK OF FUTURE SH EXACERBATION. Frequency and Duration: The patient will be seen 1 x WK x 4 WKS Short Term Goals: *DECR Lt SH PAIN TO 2-3 AT MAX *INITIATE HEP FOR POST RC/ SCAP *Pt INDEP SELF CORRECT POSTURE Snf Goals: *Pt INDEP HEP AND SELF SX MGMT TECHN-> GOLF WARMUP *Pt RESUME REG ADLs EVIDENT W IMPROVED SPADI (AT EVAL 46/130) *IMPROVED POST RC/ SCAP STRENGTH BY AT LEAST 1 GRADE Treatment Plan: Modalities to reduce pain, spasms and effusion. Manual therapy to restore motion and function. Therapeutic exercise to improve strength and flexibility. Neuromuscular re-education for posture and balance. Therapeutic activities to return to functional activities of daily living. Electronically signed by: BEREKET SMART,PT Please sign and return to therapist. Thank you for your referral.
--- NOTE | 2024-07-23 11:05 | MHC.PT.DC ---
[facility] [place] Office [place] Office [place] Office [address] [place]er 140 [facility] [phone] F: [phone] F: [phone] F: [phone] F: [phone] Physical Therapy Discharge Report Diagnosis: LEFT SHOULDER TENDONITIS Date of Surgery: Date of Evaluation: 06/26/24 Date of Discharge: 07/23/24 Treatments to Date: 4 Cancellations to Date: 0 No Shows to Date: 0 Discharge Status: Achieved Goals Improved Function Independent with HEP Discharge Summary: Pt HAS MET HIS PT GOALS AND IS D/C THIS DATE FROM PT- HE HAS WFL AROM, IMPROVED STRENGTH, AND SPADI SCORE AT D/C 21/130 ( AT EVAL 46/130). Electronically signed by: BEREKET SMART,PT Please sign and return to therapist. Thank you for your referral.
== END 2024-07-23 11:06 | disposition home or self-care (01) ==
LOC: HO.PT 08:00
PROVIDERS: PCP Internal Medicine; Visit Provider Internal Medicine
DX: M77.8 Other enthesopathies, not elsewhere classified (principal)
CPT/HCPCS: 97110; 97140; 97161; 97530

== ENCOUNTER 2024-11-26 06:58 | Outpatient (REF) | payer MEDICARE, SELFPAY ==
[2024-11-26 07:07] LABS: MANUAL DIFF FLAG NO
[2024-11-26 07:41] LABS: Basophils Absolute Auto 0.1 X10*3/uL (0.0-0.2); Basophils Percent Auto 1.1 % (0-2); Eosinophils Absolute Auto 0.2 X10*3/uL (0.0-0.4); Eosinophils Percent Auto 5.1 % (0-4); Hematocrit 39.5 % (42.0-52.0); Hemoglobin 13.2 g/dl (14.0-18.0); Imm Gran Abs Auto 0.01 X10*3/uL (0.00-0.03); Imm Gran Pct Auto 0.2 % (0.0-0.4); Lymphocytes Absolute Auto 1.3 X10*3/uL (1.2-4.9); Lymphocytes Percent Auto 27.9 % (20-40); Mean Corpuscular HGB Conc 33.4 g/dl (31.0-36.0); Mean Corpuscular Hemoglobin 32.8 pg (27.0-33.0); Mean Corpuscular Volume 98.3 fL (80.0-98.0); Mean Platelet Volume 10.3 fL (9.4-12.4); Monocytes Absolute Auto 0.4 X10*3/uL (0.1-1.2); Monocytes Percent Auto 9.3 % (2-11); Neutrophils Absolute Auto 2.6 x10*3/uL (2.0-8.3); Neutrophils Percent Auto 56.4 % (45-73); Platelet Count 250 X10*3/uL (160-400); Red Blood Count 4.02 X10*6/uL (4.60-5.80); Red Cell Distribution Width 12.3 % (11.0-16.0); White Blood Count 4.5 X10*3/uL (4.8-10.8)
[2024-11-26 08:00] LABS: Estimated Average Glucose 163 mg/dL; Hemoglobin A1C 197.2899 umol/L; Hemoglobin A1c % 7.3 % (<6.0); Total Hemoglobin (HGBA1C) 3496.2188 umol/L
[2024-11-26 08:12] LABS: Alanine Aminotransferase 29 U/L (0-40); Albumin Level 4.4 g/dL (3.5-5.0); Alkaline Phosphatase 55 U/L (39-117); Anion Gap 12 (12-20); Aspartate Amino Transferase 33 U/L (5-37); Bilirubin Total 0.8 mg/dL (0.0-1.0); Blood Urea Nitrogen 14 mg/dL (9-16); Calcium 9.7 mg/dL (8.4-10.2); Carbon Dioxide 26 mmol/L (22-29); Chloride 105 mmol/L (96-108); Cholesterol 228 mg/dL (<200); Estimated Glomerular Filt Rate > 60; Glucose Fasting 148 mg/dL (60-99); HDL Cholesterol 41 mg/dL (>40); LDL Cholesterol Calculated 162 mg/dL (<100); Potassium 4.4 mmol/L (3.3-5.1); Sodium 139 mmol/L (135-145); Total Protein 8.1 g/dL (6.5-8.0); Triglycerides 127 mg/dL (<150)
== END 2024-11-26 06:59 | disposition home or self-care (01) ==
LOC: HO.LAB 06:58
PROVIDERS: PCP Internal Medicine; Visit Provider Internal Medicine
DX: Z13.9 Encounter for screening, unspecified (principal); Z13.0 Encounter for screening for diseases of the blood and blood-forming organs and certain disorders involving the immune mechanism; Z13.220 Encounter for screening for lipoid disorders; R73.9 Hyperglycemia, unspecified
CPT/HCPCS: 36415; 80053; 80061; 83036; 85025

== ENCOUNTER 2024-11-29 09:20 | Outpatient (AMB) | payer MEDICARE, SELFPAY ==
--- NOTE | 2024-11-29 09:29 | MHC.PC.OV ---
Vital Signs 11/29/24 09:33 Height 5 ft 6 in Weight 181 lb 8 oz BMI 29.3 BP 110/68 Blood Pressure Location Lt brachial Position Sitting Pulse 77 Pulse Source Pulse Oximeter Temp 97.1 F Temp Source Temporal Artery Scan Pulse Oximetry (%) 98 Oxygen Delivery Method Room Air Intake Visit Reasons: 6 Mo Follow up Intake Note: Patient is here to follow up on DM, HTN. 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 Accompanied by: Self / Same As Patient Allergies No Known Allergies [No Known Allergies*] Allergy (Verified 11/29/24 09:33) Medication List - Last Reconciled 11/29/24 by Abdias Mcbride MD blood sugar diagnostic Once a day lisinopril 10 mg PO DAILY metformin 500 mg PO TID methylcellulose (laxative) (Citrucel) 1,000 mg PO DAILY Tobacco use date assessed: 11/29/24 Fall risk assessment: No Falls in past year Last assessed Fall Risk: 11/29/24 Dental Screening Dental Screen Date: 11/29/24 Did you have a dental visit in the last 12 months?: Yes Did you have a dental problem in the last 6 months where you did not have access to dental care?: No Was dental information given to patient?: Patient has dentist HPI 6 Mo Follow up HPI Details hypertension and hyperlipidemia; stable on rx PFSH Medical History Hypertension Diabetes mellitus with coincident hypertension Surgical History History of rectal polypectomy Family History Father Prostate cancer Mother Stroke Social History Housing: House Alcohol intake: current Alcohol intake frequency: a few times a week Patient Tobacco Use Status: Never used Tobacco Tobacco use type: Cigarette e-Cigarette/Vaping Use: Never Used Second Hand Smoke Exposure: No service: No Current occupational status: retired Cognitive needs: No Hearing needs: No Vision needs: Yes (Glasses) Questionnaire PHQ-9 Over the last 2 weeks, how often have you been bothered by any of the following problems? 1. Little interest or pleasure in doing things: not at all 2. Feeling down, depressed, or hopeless: not at all 3. Trouble falling or staying asleep, or sleeping too much: not at all 4. Feeling tired or having little energy: not at all 5. Poor appetite or overeating: not at all 6. Feeling bad about yourself - or that you are a failure or have let yourself or your family down: not at all 7. Trouble concentrating on things, such as reading the newspaper or watching television: not at all 8. Moving or speaking so slowly that other people could have noticed. Or the opposite - being so fidgety or restless that you have been moving around a lot more than usual: not at all 9. Thoughts that you would be better off or of hurting yourself in some way: not at all Total score: 0 Depression Screening Interpretation: Negative Depression Screening Done: Yes Source: Developed by Drs. Errol Graf, Bernice English, Richard Gonzalez and colleagues, with an educational brisa from [employer]. Thrive Questionnaire Date Thrive assessed: 11/29/24 I am a: Patient What is your living situation today?: I have a steady place to live Within the past 12 months, did the food you bought not last and you didn't have the money to get more?: Never true Within the past 12 months, did you worry whether your food would run out before you got money to buy more?: Never true Do you have trouble paying for medicines?: No Do you have trouble getting transportation to medical appointments?: No Do you have trouble paying your heating and electricity bill?: No Do you have trouble taking care of your child, family member or friend?: No Do you have trouble with day-to-day activities such as bathing, preparing meals, shopping, managing finances, etc.?: No Are you currently unemployed and looking for a job?: No Are you interested in more education?: No Please select the resources that you would like help with: None Currently or been in a relationship where the following occur: No concerns reported THRIVE Score: 0 AUDIT C Alcohol Use Questionnaire (AUDIT-C) 1. How often do you have a drink containing alcohol?: 2-3 times a week 2. How many drinks containing alcohol do you have on a typical day when you are drinking?: 1 or 2 Total Score: 3 TUNDE-7 AMB Questionnaire TUNDE-7 Date TUNDE - 7 assessed: 11/29/24 Feeling nervous, anxious, or on edge: 0 = Not at all Not being able to stop or control worryin = Not at all Worrying too much about different things: 0 = Not at all Trouble relaxin = Not at all Being so restless that it is hard to sit still: 0 = Not at all Becoming easily annoyed or irritable: 0 = Not at all Feeling afraid as if something awful might happen: 0 = Not at all Total TUNDE-7 score (0-4 normal; 5-9 mild; 10-14 moderate; 15-21 severe): 0 Source: Developed by Drs. Errol Graf, Bernice English, Richard Gonzalez and colleagues, with an educational brisa from [employer]. Review of Systems Const Denies chills, Denies headache(s) and Denies weight loss ENT Denies headache(s) Card Denies chest pain, Denies syncope, Denies irregular heart rhythm and Denies dyspnea Resp Denies chest congestion, Denies cough and Denies dyspnea GI Denies abdominal pain, Denies change in stool character, Denies nausea and Denies vomiting Musc Denies deformity and Denies joint swelling Neuro Denies syncope and Denies headache(s) Physical exam (Primary Care) Vital Signs: Last Vital Signs Temp 97.1 F 11/29/24 09:33 Pulse 77 11/29/24 09:33 BP 110/68 11/29/24 09:33 Pulse Ox 98 11/29/24 09:33 Oxygen Delivery Method Room Air 11/29/24 09:33 BMI result Body Mass Index 29.3 Tobacco/Smoking Status: Tobacco use Status Tobacco use date assessed 11/29/24 11/29/24 09:36 Patient Tobacco Use Status Never used Tobacco 11/29/24 09:31 Tobacco use type Cigarette 11/29/24 09:31 e-Cigarette/Vaping Use Never Used 11/29/24 09:31 PHQ-9: PHQ-9 Score PHQ-9: Total score 0 11/29/24 09:31 Depression Screening Interpretation: Negative Thrive Assessment: Date of Thrive Assessment Date Thrive assessed 11/29/24 11/29/24 09:31 Currently or been in a relationship where the following occur: No concerns reported Const General: cooperative, comfortable, no acute distress and alert Neck Neck: Yes no lymphadenopathy Thyroid: Thyroid normal Resp Effort & Inspection: normal respiratory effort Auscultation: clear to auscultation bilaterally Percussion: percussion normal Cardio Jugular venous distension: no JVD Palpation: normal PMI Rate: regular rate Rhythm: regular rhythm Heart sounds: S1 normal heart sound present and S2 normal heart sound present GI Inspection: Yes normal to inspection Palpation (GI): No hepatosplenomegaly present Skin General skin exam: no rashes or lesions noted Extrem General: Yes no clubbing, cyanosis or edema Coding Level of Care Code Est Pt Level 3 (79728) Diagnoses Hypertension I10 Diabetes mellitus with coincident hypertension E11.9; I10 Assessment & Plan Assessment & Plan (1) Hypertension: Code(s): I10 - Essential (primary) hypertension Category: Medical Plan: stable; same rx (2) Diabetes mellitus with coincident hypertension: Code(s): E11.9 - Type 2 diabetes mellitus without complications; I10 - Essential (primary) hypertension Category: Medical Plan: stable; same rx
[2024-11-29 09:33] VITALS: BP 110/68; PULSE 77; TEMP 36.2; O2SAT 98; BMI 29.3
== END 2024-11-29 09:51 | disposition home or self-care (01) ==
PROVIDERS: PCP Internal Medicine; Visit Provider Internal Medicine
DX: I10 Essential (primary) hypertension (principal); E11.9 Type 2 diabetes mellitus without complications

== ENCOUNTER → 2024-11-29 09:20 | Outpatient (BNVA) | payer MEDICARE, SELFPAY | PROVIDERS: PCP Internal Medicine; Visit Provider Internal Medicine | DX: I10 Essential (primary) hypertension (principal); E11.9 Type 2 diabetes mellitus without complications | CPT/HCPCS: 99212 ==

== ENCOUNTER 2025-03-20 12:49 | Outpatient (REF) | payer SELFPAY | END 2025-03-20 12:50 | disposition home or self-care (01) | LOC: HO.HAP 12:49 | PROVIDERS: Visit Provider Internal Medicine | DX: Z46.1 Encounter for fitting and adjustment of hearing aid (principal); H90.3 Sensorineural hearing loss, bilateral | CPT/HCPCS: 92593 ==

== ENCOUNTER 2025-06-04 08:21 | Outpatient (AMB) | payer MEDICARE, SELFPAY ==
--- NOTE | 2025-06-04 08:33 | A.OFFPC_ITS ---
Vital Signs 06/04/25 08:35 Height 5 ft 6 in Weight 174 lb 8 oz BMI 28.2 BP 120/64 Blood Pressure Location Lt brachial Position Sitting Pulse 67 Pulse Source Pulse Oximeter Temp 97.1 F Temp Source Temporal Artery Scan Pulse Oximetry (%) 98 Oxygen Delivery Method Room Air Intake Visit Reasons: Transfer from [facility] 6 month f/u Intake Note: Patient is here today for JIMI from Dr Mcbride. Vocational Training Director Required: No Caramel Coloring Operator: Not Required per policy Accompanied by: Self / Same As Patient Allergies No Known Allergies (No Known Allergies*) Allergy (Verified 06/04/25 08:38) Medication List - Last Reconciled 06/04/25 by VINICIUS Christie blood sugar diagnostic Once a day blood sugar diagnostic (TrackBilluch Ultra Test strips) As directed 2 times per day lancets (MelStevia Incuch Delica Safety Lancet) As directed 2 times per day lisinopril 10 mg PO DAILY metformin 500 mg PO TID methylcellulose (laxative) (Citrucel) 1,000 mg PO DAILY Tobacco use date assessed: 06/04/25 Fall risk assessment: No Falls in past year Last assessed Fall Risk: 06/04/25 Dental Screening Dental Screen Date: 11/29/24 HPI Transfer from [facility] f/u HPI Details The patient is a 65-year-old male who is presenting to transition care from Dr. Mcbride who retired around six-month ago. Significant past medical history of hypertension, diabetes mellitus, HLD. The patient has a history of Type 2 Diabetes Mellitus, managed with Metformin, and reports that his Hemoglobin A1c levels have been stable, with recent values around 7.1%. He follows up every six months for diabetes management and has been compliant with his medication regimen. The patient also has Essential Hypertension, which was initially surprising to him as he had no prior issues with blood pressure. He is currently on Lisinopril, which has effectively managed his blood pressure. Hyperlipidemia is another concern, with LDL cholesterol levels noted to be higher than recommended for a diabetic patient. The patient has not previously been on cholesterol-lowering medication, and a low-dose statin is being considered. Anemia was noted during the visit, with low red blood cell counts observed in past lab results. The patient was unaware of this condition, and further evaluation of iron, vitamin B12, and folate levels is planned. The patient reports hearing loss and uses hearing aids, although he does not wear them consistently. He acknowledges the potential link between hearing loss and cognitive decline, which motivates him to use the aids more regularly. [facility] Medical History (Updated 06/04/25 @ 09:06 by VINICIUS Christie) Hypertension Diabetes mellitus with coincident hypertension Surgical History History of skin graft History of rectal polypectomy Family History Father Prostate cancer Mother Stroke Social History Housing: House Alcohol intake: current Alcohol intake frequency: a few times a week Patient Tobacco Use Status: Never used Tobacco Tobacco use type: Cigarette e-Cigarette/Vaping Use: Never Used Second Hand Smoke Exposure: No service: No Current occupational status: retired Cognitive needs: No Hearing needs: No Vision needs: Yes (Glasses) Questionnaire PHQ-9 Over the last 2 weeks, how often have you been bothered by any of the following problems? 1. Little interest or pleasure in doing things: not at all 2. Feeling down, depressed, or hopeless: not at all 3. Trouble falling or staying asleep, or sleeping too much: not at all 4. Feeling tired or having little energy: not at all 5. Poor appetite or overeating: not at all 6. Feeling bad about yourself - or that you are a failure or have let yourself or your family down: not at all 7. Trouble concentrating on things, such as reading the newspaper or watching television: not at all 8. Moving or speaking so slowly that other people could have noticed. Or the opposite - being so fidgety or restless that you have been moving around a lot more than usual: not at all 9. Thoughts that you would be better off or of hurting yourself in some way: not at all Total score: 0 Depression Screening Interpretation: Negative Depression Screening Done: Yes Source: Developed by Drs. Errol Graf, Bernice English, Richard Gonzalez and colleagues, with an educational brisa from [employer]. Thrive Questionnaire Date Thrive assessed: 05/28/25 I am a: Patient What is your living situation today?: I have a steady place to live Within the past 12 months, did the food you bought not last and you didn't have the money to get more?: Never true Within the past 12 months, did you worry whether your food would run out before you got money to buy more?: Never true Do you have trouble paying for medicines?: No Do you have trouble getting transportation to medical appointments?: No Do you have trouble paying your heating and electricity bill?: No Do you have trouble taking care of your child, family member or friend?: No Do you have trouble with day-to-day activities such as bathing, preparing meals, shopping, managing finances, etc.?: No Are you currently unemployed and looking for a job?: No Are you interested in more education?: No Please select the resources that you would like help with: None Currently or been in a relationship where the following occur: No concerns reported THRIVE Score: 0 AUDIT C Alcohol Use Questionnaire (AUDIT-C) 1. How often do you have a drink containing alcohol?: 2-3 times a week 2. How many drinks containing alcohol do you have on a typical day when you are drinking?: 3 or 4 3. How often do you have six or more drinks on one occasion?: Monthly Total Score: 6 TUNDE-7 AMB Questionnaire TUNDE-7 Date TUNDE - 7 assessed: 11/29/24 Feeling nervous, anxious, or on edge: 0 = Not at all Not being able to stop or control worryin = Not at all Worrying too much about different things: 0 = Not at all Trouble relaxin = Not at all Being so restless that it is hard to sit still: 0 = Not at all Becoming easily annoyed or irritable: 0 = Not at all Feeling afraid as if something awful might happen: 0 = Not at all Total TUNDE-7 score (0-4 normal; 5-9 mild; 10-14 moderate; 15-21 severe): 0 Source: Developed by Drs. Errol Graf, Bernice English, Richard Gonzalez and colleagues, with an educational brisa from [employer]. Review of Systems Const Denies headache(s) Eyes Denies loss of vision ENT Denies vertigo, Denies dizziness, Denies headache(s), Reports hearing loss (Wears hearing aids at times, but can hear some without it) and Denies sore throat Card Denies chest pain, Denies leg edema and Denies lightheadedness Resp Denies cough, Denies hemoptysis and Denies wheezing GI Denies abdominal pain, Denies melena, Denies constipation, Denies diarrhea and Denies vomiting Denies dysuria, Denies urinary frequency and Denies urinary urgency Musc Denies arthralgias, Denies joint swelling, Denies numbness and Denies tingling Neuro Denies Abnormal speech present, Denies behavioral changes, Denies vertigo, Denies dizziness, Denies headache(s), Denies loss of vision, Denies memory loss, Denies numbness and Denies tingling Psych Denies anxiety, Denies behavioral changes, Denies depression, Denies memory loss and Denies panic attacks Naldo/Lymph Denies easy bleeding and Denies easy bruising Aller/Immun Denies wheezing Physical exam (Primary Care) Vital Signs: Last Vital Signs Temp 97.1 F 06/04/25 08:35 Pulse 67 06/04/25 08:35 BP 120/64 06/04/25 08:35 Pulse Ox 98 06/04/25 08:35 Oxygen Delivery Method Room Air 06/04/25 08:35 BMI result Body Mass Index 28.2 Tobacco/Smoking Status: Tobacco use Status Tobacco use date assessed 06/04/25 06/04/25 08:39 Patient Tobacco Use Status Never used Tobacco 06/04/25 08:39 Tobacco use type Cigarette 06/04/25 08:39 e-Cigarette/Vaping Use Never Used 06/04/25 08:39 PHQ-9: PHQ-9 Score PHQ-9: Total score 0 06/04/25 08:39 Depression Screening Interpretation: Negative Thrive Assessment: Date of Thrive Assessment Date Thrive assessed 05/28/25 06/04/25 08:39 Currently or been in a relationship where the following occur: No concerns reported Const General: healthy appearing, no acute distress, alert and awake Nutritional Appearance: well nourished Orientation/consciousness: oriented to person, oriented to place and oriented to time HENMT Ears: TM's normal bilaterally General nose exam: Normal nasal mucous membranes and turbinates present Eyes Conjunctivae: conjunctivae normal Sclerae: sclerae normal Pupils: Equal, round and reactive pupils present Neck Neck: Yes no lymphadenopathy and Yes no JVD Thyroid: Thyroid normal Carotids: no bruits Resp Effort & Inspection: normal respiratory effort and not tachypneic Auscultation: no crackles, no rales, no rhonchi and no wheezes Cardio Rate: regular rate Rhythm: regular rhythm Heart sounds: no murmurs and normal S1 and S2 GI Palpation (GI): Soft to palpation, nontender, no hepatomegaly and no splenomegaly Auscultation: normal bowel sounds Skin General skin exam: no rashes or lesions noted and dry skin Neuro General: oriented to person, oriented to place and oriented to time Cranial nerves: Yes Equal, round and reactive pupils present Speech: No Abnormal speech present Gait exam (Neuro): Normal gait present Motor exam (neuro): no tremor noted Extrem Right upper extremity: full ROM Left upper extremity: full ROM Right lower extremity: full ROM; no edema Left lower extremity: full ROM; no edema Psych Mental Status: mental status grossly normal Speech and movement: Normal speech and movement present Affect: normal affect Attitude: cooperative Thought process: Normal thought process present Results AMB Hemoglobin A1c AMB Hemoglobin A1c 7.1 % Last Edit by PANCHITO Shetty on 06/04/25 09:02 Results Reviewed Results Reviewed: Laboratory Last Values Hgb A1c (Clinic) 7.1 % (4.0-6.0) H 06/04/25 08:33 Coding Level of Care Code Est Pt Level 4 (47727) Diagnoses Hypertension, unspecified type I10 Hypertension type: unspecified Pure hypercholesterolemia E78.00 Hyperlipidemia type: pure hypercholesterolemia Type 2 diabetes mellitus with other specified complication, without long-term current use of insulin E11.69 Diabetes mellitus complication status: with other specified complication Diabetes mellitus [facility] insulin use: without [facility] use Diabetes mellitus type: type 2 Anemia, unspecified type D64.9 Anemia type: unspecified type Time Spent (min) 38 Assessment & Plan Assessment & Plan (1) Hypertension: Code(s): I10 - Essential (primary) hypertension Category: Medical Qualifiers: Hypertension type: unspecified Qualified Code(s): I10 - Essential (primary) hypertension (2) HLD (hyperlipidemia): Code(s): E78.5 - Hyperlipidemia, unspecified Category: Medical Qualifiers: Hyperlipidemia type: pure hypercholesterolemia Qualified Code(s): E78.00 - Pure hypercholesterolemia, unspecified (3) Diabetes mellitus: Comment: cont same rx; do labs; 20 min reviewing chart, evaluating patient and documenting Code(s): E11.9 - Type 2 diabetes mellitus without complications Category: Medical Qualifiers: Diabetes mellitus complication status: with other specified complication Diabetes mellitus intermediate card tender insulin use: without [facility] use Diabetes mellitus type: type 2 Qualified Code(s): E11.69 - Type 2 diabetes mellitus with other specified complication (4) Anemia: Code(s): D64.9 - Anemia, unspecified Category: Medical Qualifiers: Anemia type: unspecified type Qualified Code(s): D64.9 - Anemia, unspecified Plan The patient's Type 2 Diabetes Mellitus is currently managed with Metformin, and his Hemoglobin A1c levels have been stable at 7.1%. Regular follow-up every six months is planned to monitor his condition and adjust treatment as necessary. The patient is on Lisinopril for Essential Hypertension, which has effectively controlled his blood pressure. Continued monitoring and medication adherence are advised. The patient's LDL cholesterol levels are higher than recommended for a diabetic patient, and a low-dose statin is being considered to manage his hyperlipidemia. Dietary modifications and regular exercise are also recommended to help manage cholesterol levels. Anemia was identified with low red blood cell counts, and the patient was unaware of this condition. Further evaluation of iron, vitamin B12, and folate levels is planned to determine the cause and appropriate management. The patient reports hearing loss and uses hearing aids, although not consistently. He is encouraged to use the aids regularly to prevent cognitive decline associated with hearing loss. Orders: Orders Lipid Panel Today D64.9 - Anemia, unspecified, E11.9 - Type 2 diabetes mellitus without complications, E78.5 - Hyperlipidemia, unspecified, I10 - Essential (primary) hypertension UA CC w/rflx Micro + Cult Today D64.9 - Anemia, unspecified, E11.9 - Type 2 diabetes mellitus without complications, E78.5 - Hyperlipidemia, unspecified, I10 - Essential (primary) hypertension Vitamin D 25-OH Total Today D64.9 - Anemia, unspecified, E11.9 - Type 2 diabetes mellitus without complications, E78.5 - Hyperlipidemia, unspecified, I10 - Essential (primary) hypertension Comprehensive [place]. Panel Fast Today D64.9 - Anemia, unspecified, E11.9 - Type 2 diabetes mellitus without complications, E78.5 - Hyperlipidemia, unspecified, I10 - Essential (primary) hypertension Lipid Panel 6 Months D64.9 - Anemia, unspecified, E11.9 - Type 2 diabetes mellitus without complications, E78.5 - Hyperlipidemia, unspecified, I10 - Essential (primary) hypertension Complete Blood Count Auto Diff 6 Months D64.9 - Anemia, unspecified, E11.9 - Type 2 diabetes mellitus without complications, E78.5 - Hyperlipidemia, unspecified, I10 - Essential (primary) hypertension Comprehensive [place]. Panel Fast 6 Months D64.9 - Anemia, unspecified, E11.9 - Type 2 diabetes mellitus without complications, E78.5 - Hyperlipidemia, unspecified, I10 - Essential (primary) hypertension UA CC w/rflx Micro + Cult 6 Months D64.9 - Anemia, unspecified, E11.9 - Type 2 diabetes mellitus without complications, E78.5 - Hyperlipidemia, unspecified, I10 - Essential (primary) hypertension Vitamin D 25-OH Total 6 Months D64.9 - Anemia, unspecified, E11.9 - Type 2 diabetes mellitus without complications, E78.5 - Hyperlipidemia, unspecified, I10 - Essential (primary) hypertension AMB Hemoglobin A1c Today E11.9 - Type 2 diabetes mellitus without complications TSH reflex Free T4 Today D64.9 - Anemia, unspecified, E11.9 - Type 2 diabetes mellitus without complications, E78.5 - Hyperlipidemia, unspecified, I10 - Essential (primary) hypertension IRON PROFILE Today D64.9 - Anemia, unspecified, E11.9 - Type 2 diabetes mellitus without complications, E78.5 - Hyperlipidemia, unspecified, I10 - Essential (primary) hypertension Vitamin B12 and Folate Today D64.9 - Anemia, unspecified, E11.9 - Type 2 diabetes mellitus without complications, E78.5 - Hyperlipidemia, unspecified, I10 - Essential (primary) hypertension Complete Blood Count Auto Diff Today D64.9 - Anemia, unspecified, E11.9 - Type 2 diabetes mellitus without complications, E78.5 - Hyperlipidemia, unspecified, I10 - Essential (primary) hypertension TSH reflex Free T4 6 Months D64.9 - Anemia, unspecified, E11.9 - Type 2 diabetes mellitus without complications, E78.5 - Hyperlipidemia, unspecified, I10 - Essential (primary) hypertension Medications: New rosuvastatin 5 mg PO DAILY 90 tabs 3RF
[2025-06-04 08:35] VITALS: BP 120/64; PULSE 67; TEMP 36.2; O2SAT 98; BMI 28.2
--- OUTSIDE RECORDS SUMMARY | 2025-06-04 09:00 | XMS_ITS | Patient Health Record ---
Author Organization [facility] Address [address] [place] [address] Care Team Providers Care Daycare Worker Name Role Phone Gregory Villasenor Jr Reason For Referral No Information Plan Of Treatment No Information
== END 2025-06-04 09:01 | disposition home or self-care (01) ==
DX: I10 Essential (primary) hypertension (principal); E78.00 Pure hypercholesterolemia, unspecified; E11.69 Type 2 diabetes mellitus with other specified complication; D64.9 Anemia, unspecified; E11.9 Type 2 diabetes mellitus without complications

== ENCOUNTER → 2025-06-04 08:21 | Outpatient (BNVA) | payer MEDICARE, SELFPAY | PROVIDERS: PCP Internal Medicine | DX: I10 Essential (primary) hypertension (principal); E78.00 Pure hypercholesterolemia, unspecified; E11.69 Type 2 diabetes mellitus with other specified complication; D64.9 Anemia, unspecified | CPT/HCPCS: 83036; 99212 ==

== ENCOUNTER 2025-08-21 15:40 | Outpatient (REF) | payer SELFPAY ==
--- OUTSIDE RECORDS SUMMARY | 2025-08-22 04:15 | XMS_ITS | Patient Health Record ---
Author Organization [facility] Address [address] [place] [address] Care Team Providers Care Roller Hand Name Role Phone Gregory Villasenor Jr [phone] Reason For Referral No Information Plan Of Treatment No Information
--- OUTSIDE RECORDS SUMMARY | 2025-08-22 04:15 | XMS_ITS | Clinical Summary ---
Author Organization [facility] Address [address] [place] [address] Phone Care Team Providers Care Lead Net Software Developer Name Role Phone Abdias Mcbride MD Primary Care Provider [phone] Allergies No known active allergies Medications lisinopril (PRINIVIL,ZESTR IL) 10 MG tablet Take 10 mg by mouth daily. 10 9 Active metFORMIN (GLUCOPHAGE) 500 MG tablet TAKE 1 TABLET BY MOUTH TWICE A DAY WITH MEALS TWICE A DAY ORALLY 30 10 9 Active methylcellulose , laxative, (CITRUCEL) Powd Take 2 g by mouth daily. Active guaiFENesin-cod eine (ROBITUSSIN AC) 100-10 mg/5 mL liquid Take 5 mL (10 mg of codeine total) by mouth 3 (three) times a day as needed for cough. 120 mL Active Additional Information Patient not taking.Reported on 07/24/2023 Active Problems No known active problems Social History Tobacco Use Types Packs/Day Years Used Date Smoking Tobacco: Never Smokeless Tobacco: Never Alcohol Use Standard Drinks/Week Comments Yes 2 (1 standard drink = 0.6 oz pur e alcohol) Occasional Education Answer Date Recorded Are you interested in more education? Not on hernandez e 01/28/2023 Are you concerned about learning? Not on file 01/28/2023 No 01/28/2023 No 01/28/2023 Digital Access Answer Date Recorded No 02/26/2023 No 02/26/2023 No 02/26/2023 Reliable internet access at home? Not on file 02/26/2023 Device with a working camera? Not on file Sex and Gender Information Value Date Recorded Sex Assigned at Not on file Legal Sex Male 8:28 AM EDT Gender Identity Not on file Sexual Orientation Not on file Last Filed Vital Signs Vital Sign Reading Time Taken Comments Blood Pressure 133/81 07/24/2023 10:09 AM EDT Pulse 66 07/24/2023 10:09 AM EDT Temperature 36.4 C (97.6 F) 07/24/2023 10:09 AM EDT Respiratory Rate 17 07/24/2023 10:09 AM EDT Oxygen Saturation 99% 07/24/2023 10:09 AM EDT Inhaled Oxygen Concentration - - Weight 78.5 kg (173 lb) 07/24/2023 10:09 AM EDT Height 167.6 cm (5' 6 ) 07/24/2023 10:09 AM EDT Body Mass Index 27.92 07/24/2023 10:09 AM EDT Plan of Treatment Health Maintenance Due Date Last Done Comments Adult Td,Tdap Booster 1958 CREATININE LEVEL 1958 LIPID PANEL 1958 POTASSIUM LEVEL 1958 DEPRESSION SCREENING 1970 HEPATITIS C SCREENING 02/06/1976 SCREENING FOR DIABETES 1993 COLOGUARD 2003 COLONOSCOPY 2003 COLORECTAL CANCER SCREENING 2003 FIT TEST 2003 FOBT 2003 SIGMOIDOSCOPY 2003 VIRTUAL COLONOSCOPY 2003 PNEUMOCOCCAL VACCINES (50+ years) (1 of 1 - PCV) 02/06/2008 ZOSTER VACCINES (2 of 3) 07/15/2015 05/20/2015 INFLUENZA VACCINE (#1) 2025 , 06/23/2022, 07/07/2021, Additional history exists COVID-19 VACCINE ( season) 2025 07/04/2023, 06/23/2022, 09/14/2021, Additional history exists RSV VACCINE (1 - 1-dose 75+ series) 2033 SMOKING STATUS SCREENING (Once After 26 Yrs) Completed 06/11/2021 HEPATITIS A VACCINES Aged Out No long er eligible based on patient's age to complete this topic HIB VACCINES Aged Out No longer eligi ble based on patient's age to complete this topic MENINGOCOCCAL VACCINES (ACWY) Aged Out No longer eligible based on patient's age to complete this topic MENINGOCOCCAL VACCINES (B) Aged Out N o longer eligible based on patient's age to complete this topic Medical Devices Not on file Insurance [employer] CROSS MEDEX SUPPLEMENT MEDICARE PART A & B [employer] CROSS MEDEX SUPPLEMENT MEDICARE PART A & B BLUE [employer]OSS MEDEX SUPPLEMENT BLUE CROSS MEDEX SUPPLEMENT BLUE CROSS MEDEX SUPPLEMENT MEDICARE PART A & B [employer] MEDEX SUPPLEMENT [employer] CROSS MEDEX SUPPLEMENT MEDICARE PART A & B BLUE [employer]OSS MEDEX SUPPLEMENT MEDICARE PART A & B BLUE [employer] MEDEX SUPPLEMENT MEDICARE PART A & B Care Teams Lead Net Software Developer Relationship Specialty Start Date End Date Abdias Mcbride MD [address] [place] [address] [place] [address] PCP - General Internal Medicine 07/13/19 Additional Source Comments The information contained in this document represents components of the legal health record. It is not the complete legal health record.[facility]
== END 2025-08-21 15:41 | disposition home or self-care (01) ==
LOC: HO.HAP 15:40
DX: Z13.89 Encounter for screening for other disorder (principal)

== ENCOUNTER 2025-09-04 15:16 | Outpatient (REF) | payer SELFPAY ==
--- OUTSIDE RECORDS SUMMARY | 2025-09-04 18:20 | XMS_ITS | Clinical Summary ---
Author Organization [facility] Address [address] [place] [address] Phone Care Team Providers Care Wall Attendant Name Role Phone Abdias Mcbride MD Primary Care Provider [phone] Allergies No known active allergies Medications lisinopril [...] topic Medical Devices Not on file Insurance [employer] CROSS MEDEX SUPPLEMENT MEDICARE PART A & B [employer] CROSS MEDEX SUPPLEMENT MEDICARE PART A & B BLUE CROSS MEDEX SUPPLEMENT BLUE CROSS MEDEX SUPPLEMENT BLUE CROSS MEDEX SUPPLEMENT MEDICARE PART A & B [employer] MEDEX SUPPLEMENT Living [employer] CROSS MEDEX SUPPLEMENT MEDICARE PART A & B BLUE CROSS MEDEX SUPPLEMENT MEDICARE PART A & B BLUE CROSS MEDEX SUPPLEMENT MEDICARE PART A & B Care Teams Wall Attendant Relationship Specialty Start Date End Date Abdias Mcbride MD [address] [place] [address] [place] [address] PCP - General Internal Medicine 07/13/19 Additional Source Comments The information contained in this document represents components of the legal health record. It is not the complete legal health record.[facility]
--- OUTSIDE RECORDS SUMMARY | 2025-09-04 18:21 | XMS_ITS | Patient Health Record ---
Author Organization [facility] Address [address] [place] [address] Care Team Providers Care Fine Arts Packer Name Role Phone Gregory Villasenor Jr [phone] Reason For Referral No Information Plan Of Treatment No Information
== END 2025-09-04 15:17 | disposition home or self-care (01) ==
LOC: HO.HAP 15:16
PROVIDERS: Visit Provider Internal Medicine
DX: H90.3 Sensorineural hearing loss, bilateral (principal)
CPT/HCPCS: 92593